=== PATIENT | female | born 1955 | race Caucasian/White ===

== ENCOUNTER 2017-03-31 10:24 | Inpatient (IN) | payer BC ==
[~2017-03-31] VITALS: Ht 157.5 cm; Wt 59.8 kg
[2017-03-31] VITALS (31 sets, daily range): BP systolic 110–139; BP diastolic 58–85; PULSE 73–94; RESP 11–20; Ht 157.5 cm; Wt 59.8 kg
[2017-03-31] MEDS ORDERED: GABA100C14 PO (11:42)
[2017-03-31] MEDS ORDERED: LOSA1TAB19 PO (11:43)
[2017-03-31] MEDS ORDERED: CHOL200078 PO (11:43)
[2017-03-31] MEDS ORDERED: CETI-240 PO (11:44)
--- NOTE | 2017-03-31 12:27 | HPN ---
Date/Time of Note Date/Time of Note DATE: 03/31/17 TIME: 12:27 Interval H&P Admission Note Pt. seen H&P reviewed: No system changes TINA MYLES MD Mar 31, 2017 12:27
[2017-03-31] MEDS ORDERED: HYDROmorphONE 0.5 MG/0.5 ML SYG IV PRN (12:30)
[2017-03-31] MEDS ORDERED: BISACODYL 10 MG SUPP PR PRN (12:30)
[2017-03-31] MEDS ORDERED: AL HYDROX/MG HYDROX/SIMETH 30 ML CUP PO PRN (12:30)
[2017-03-31] MEDS ORDERED: ACETAMINOPHEN 325 MG TAB PO PRN (12:30)
[2017-03-31] MEDS ORDERED: CEFAZOLIN 2 GM/50 ML (PMX) 50 ML IVPB ONE (12:30)
[2017-03-31] MEDS: CEFAZOLIN 1 GM/50 ML (PMX) 50 ML IVPB SCH ×2 (12:30→21:36)
[2017-03-31] MEDS ORDERED: NALOXONE (0.4 MG/ML) INJ IV PRN (12:30)
[2017-03-31] MEDS ORDERED: CEPASTAT LOZENGE MT PRN (12:30)
[2017-03-31] MEDS ORDERED: SURGIFOAM POWDER 1 GM KIT ONE (13:00)
[2017-03-31] MEDS ORDERED: POLYMYXIN/BACITRACIN 1L IRRIG ONE (13:00)
[2017-03-31] MEDS ORDERED: THROMBIN 5000 UNIT VIAL ONE (13:00)
[2017-03-31] MEDS ORDERED: GELATIN SIZE 100 SPONGE ONE (13:00)
[2017-03-31] MEDS ORDERED: BUPIVACAINE 0.5%/EPI (SDV) 30 ML INJ ONE (13:00)
[2017-03-31] MEDS ORDERED: FENTAnyl 50 MCG/ML VIAL ONE (13:20)
[2017-03-31] MEDS ORDERED: LABETALOL HCL 20MG INJ ONE (14:01)
[2017-03-31] MEDS ORDERED: hydrALAzine 20 MG INJ ONE (14:32)
[2017-03-31] MEDS ORDERED: HEPARIN 1000 UNITS/ML 10 ML INJ ONE (15:10)
[2017-03-31] MEDS ORDERED: PROPOFOL 20 ML ONE (16:38)
[2017-03-31] MEDS ORDERED: CEFAZOLIN 1 GM INJ ONE (16:38)
[2017-03-31] MEDS ORDERED: ROCURONIUM 50 MG INJ ONE (16:38)
[2017-03-31] MEDS ORDERED: SUGAMMADEX SODIUM 200 MG/2 ML VIAL IV ONE (16:38)
[2017-03-31] MEDS ORDERED: LIDOCAINE 2% (SDV) 5 ML INJ ONE (16:38)
[2017-03-31] MEDS ORDERED: SUCCINYLCHOLINE CHLORIDE 100 MG/5 ML SYG IV ONE (16:38)
[2017-03-31] MEDS ORDERED: METOCLOPRAMIDE 10 MG INJ IV PRN (17:00)
[2017-03-31] MEDS ORDERED: FENTAnyl 50 MCG/ML VIAL IV PRN ×2 (17:00)
[2017-03-31] MEDS ORDERED: ONDANSETRON 4 MG INJ IV PRN (17:00)
[2017-03-31] MEDS ORDERED: HYDROmorphONE (0.2 MG/ML) 10ML SYG IV PRN ×3 (17:00)
[2017-03-31] MEDS ORDERED: LABETALOL HCL 20MG INJ IV PRN (17:00)
[2017-03-31] MEDS ORDERED: DIPHENHYDRAMINE 50 MG INJ IV PRN (17:00)
[2017-03-31] MEDS ORDERED: hydrALAzine 20 MG INJ IV PRN (17:00)
[2017-03-31] MEDS ORDERED: MEPERIDINE 25 MG INJ IV PRN (17:00)
--- NOTE | 2017-03-31 17:00 | SIPON ---
Date/Time of Note Date/Time of Note DATE: 03/31/17 TIME: 16:59 Operative Report Preoperative Diagnosis L4-5 spondylolisthesis Postoperative Diagnosis L4-5 spondylolisthesis Operation/Procedure Performed L4-5 anterior and posterior fusion Surgeon see signature line executive assistant to president None Anesthesia: general Estimated blood loss: 50 - 100 ml's Transfusion Required none Specimen L4-5 disc Grafts/Implants Cages and screws Complications none TINA MYLES MD Mar 31, 2017 17:00
--- NOTE | 2017-03-31 17:32 | RADRPT ---
PROCEDURE: Intraoperative imaging of the lumbar spine with fluoroscopy. CLINICAL INDICATION: Back pain. Intraoperative. TECHNIQUE: 13 images of the lumbar spine were obtained in the operating room with an image intensi fier. No radiologist was in attendance. Fluoroscopy time is 185 seconds. COMPARISON: No prior study is available for comparison. FINDINGS: For the purposes of this report, the last apparent true disc level is considered to be L5-S1. Based on this, images demonstrate fusion at L4-5 with pedicle screws, connecting rods, and an interverteb ral cage. IMPRESSION: 1. Intraoperative imaging of the lumbar spine. RPTAT: QQ .Nelson Barroso MD, MD Date Time Electronically viewed and signed by .Nelson Barroso MD, MD on 03/31/2017 17:32 .R/
--- NOTE | 2017-03-31 17:33 | RADRPT ---
PROCEDURE: Intraoperative imaging of the lumbar spine with fluoroscopy. CLINICAL INDICATION: Back pain. Intraoperative. TECHNIQUE: 2 images of the lumbar spine were obtained in the operating room with an image intensif ier. No radiologist was in attendance. Fluoroscopy time is 24 seconds. COMPARISON: No prior study is available for comparison. FINDINGS: For the purposes of this report, the last apparent true disc level is considered to be L5-S1. Based on this, the images demonstrate an intervertebral cage at the L4-5 level. IMPRESSION: 1. Intraoperative imaging of the lumbar spine. RPTAT: QQ .Nelson Barroso MD, MD Date Time Electronically viewed and signed by .Nelson Barroso MD, MD on 03/31/2017 17:33 .R/
[2017-03-31] MEDS: HYDROmorphONE 0.2 MG/ML PCA IV SCH ×2 (17:59→18:00)
[2017-03-31 18:14] LABS: ADD UMIC NO; UR ASCORBIC ACID NEGATIVE (NEGATIVE); UR BILIRUBIN (Dip) NEGATIVE (NEGATIVE); UR BLOOD (Dip) NEGATIVE (NEGATIVE); UR CLARITY CLEAR (CLEAR); UR COLOR YELLOW (YELLOW); UR GLUCOSE (Dip) NEGATIVE (NEGATIVE); UR KETONES (Dip) NEGATIVE (NEGATIVE); UR LEUKOCYTE ESTERASE (Dip) NEGATIVE Leu/ul (NEGATIVE); UR NITRITE (Dip) NEGATIVE (NEGATIVE); UR SPECIFIC GRAVITY (Dip) 1.014 (1.003-1.030); UR TOTAL PROTEIN (Dip) NEGATIVE (NEGATIVE); UR UROBILINOGEN (Dip) NEGATIVE (NEGATIVE)
[2017-03-31] MEDS: LOSARTAN 50 MG TAB PO SCH (18:30)
--- NOTE | 2017-03-31 18:39 | OPR ---
DATE OF OPERATION: 03/31/2017 PREOPERATIVE DIAGNOSIS: L4-L5 degenerative spondylolisthesis with radiculopathy and stenosis. POSTOPERATIVE DIAGNOSIS: L4-L5 degenerative spondylolisthesis with radiculopathy and stenosis. PROCEDURES: 1. Anterior lumbar interbody fusion at L4-L5. 2. Placement of intervertebral biomechanical device at L4-L5. 3. Pedicle screw placement at L4-L5. 4. Posterolateral fusion at L4-L5. 5. Bone marrow aspiration, left L4 vertebral body. 6. Use of allograft. 7. Use of C-arm fluoroscopy with interpretation without radiologist. 8. Intraoperative neuromonitoring (3.5 hours). PRIMARY SURGEON: Pedro Noble MD WINE BOTTLE INSPECTOR: None. IMPLANTS: 1. [place] 12 x 10 x 45 mm cage. 2. [place] 6.5 x 40 mm pedicle screws at L4 and L5 bilaterally. 3. Fibergraft matrix. FINDINGS: Neuromonitoring at the start of the case revealed L4 amplitude down 10% bilaterally, left L5 amplitude down 60%, right L5 amplitude down 40%, left S1 amplitude down 50%. At the end of the case, nerve signals returned to normal. The patient had a degenerative spondylolisthesis at L4-L5. ESTIMATED BLOOD LOSS: 100 mL. DRAINS: None. SPECIMENS: L4-L5 disk. COMPLICATIONS OF PROCEDURE: None. ANESTHESIOLOGIST: Dr. Nguyen. TYPE OF ANESTHESIA: General. INDICATION FOR PROCEDURE: This is a 61-year-old female with neurogenic claudication, stenosis and r adiculopathy due to L4-L5 degenerative anterolisthesis. She failed nonoperative measures. Therefor e, I recommended proceeding with the above-mentioned surgery. Preoperatively, we discussed the risk s, benefits and alternatives. She understood and wished to proceed. DESCRIPTION OF PROCEDURE IN DETAIL: The patient was identified in the preoperative holding area, [facility], taken to the operating room where she was successfully placed under general an esthesia. Neuromonitoring leads were placed. Sequential compressive devices were applied. Monsivais c atheter was introduced. Arterial line was placed. Neuromonitoring was utilized during the procedur e for 3.5 hours to include SSEP, MEP and EMG. This was performed by [employer]. Start time w as at 1:30. Closure time was 5:00 p.m. The patient was initially placed in a left lateral decubitu s position. The patient was secured to the table with tape and the bed was flexed. The lateral abd omen was then prepped and draped in usual sterile fashion. Incision was made directly laterally ove r the L4-L5 level. I entered the retroperitoneal space with finger dissection to enter the anterior spine. I then docked a dilator using neuromonitoring along the way and placed a guidewire, followe d by placement of larger cannulas. I then placed a retractor. I cleaned the psoas off of the disk space. I next visualized the annulus. I probed the area to make sure that there were no neural olive ments in the field. I then performed a radical diskectomy using curettes, Kerrison punches and pitu itary rongeurs. I then placed various trials. The 8 x 10 mm trial was too small, as was the 10 mm, and, therefore, I elected to use a 12 x 10 mm lordotic trial in order to achieve lordosis. This we nt in quite easily without having to overly distract despite this disk height being now larger than the adjacent disks. After I placed the various trials, I chose the appropriate graft height. I the n took the PEEK cage within which I had placed the allograft and I impacted the intervertebral biome chanical device into the L4-L5 level to complete the anterior lumbar interbody fusion at L4-L5. I i rrigated the wound and achieved hemostasis with bipolar cautery and Surgifoam. Retractors were argenis harpreet, and I took final AP and lateral images. I was happy with the placement of hardware and the ali gnment of the spine. I removed the retractors and closed this wound in layers, closing deep fascia with #1 Vicryl stitch. I closed the subcutaneous tissue with 2-0 Vicryl stitch. Dermabond and ster ile dressing was then applied. The patient was then placed on the operating table in the prone posi tion over a Judson frame. All bony prominences were well padded. The back was then reprepped and d raped in the usual sterile fashion. Using the C-arm fluoroscope, I identified the incision site. I anesthetized the skin with Marcaine and epinephrine. I made bilateral Leigha incisions at L4-L5. Skin was incised. The fascia was incised. I then passed Jamshidi needles into the L4 and L5 pedicl es bilaterally under C-arm guidance. I then performed a bone marrow aspiration from the left L4 roman tebral body. I then placed the appropriate-sized pedicle screws at L4 and L5, confirming placement using the C-arm fluoroscope. I stimulated each of the screws, and there was no evidence of cortical breach. I then irrigated the wound. I then placed the appropriate-sized rods and compressed acros s the pedicle screws and placed the set screws with tightening per manufacture's specifications. On ce the hardware was in place, I took final AP and lateral images. I was happy with the alignment of the spine and the hardware. I prepared the posterolateral gutter and placed the allograft here for a posterolateral fusion at L4-L5. I then closed the deep fascia with a #1 Vicryl stitch. I closed the subcutaneous tissue with 2-0 Vicryl stitch. Dermabond was then applied. The patient was then awakened from anesthesia and taken to the recovery room in stable condition. Lap, sponge and instru ment counts were correct x2. There were no apparent complications during the procedure. The patient will be admitted to the [facility] for routine postoperative care to include pain c ontrol, neurovascular checks, antibiotics and physical therapy. At the end of the case, all nerve s ignals were normal. Dictated By: PEDRO NOBLE MD BB/ARTURO Conf#: [id number] DID#: [id number] CC: PEDRO NOBLE MD;*EndCC*
[2017-03-31] MEDS: D5W-0.45 NACL + KCL 20 MEQ 1,000 ML IV SCH ×2 (20:04→22:27)
[2017-03-31] MEDS: DOCUSATE SODIUM 100 MG CAP PO SCH (21:35)
[2017-03-31] MEDS: ONDANSETRON 4 MG INJ IV PRN (22:35)
--- NOTE | 2017-04-01 00:31 | CONS ---
DATE OF ADMISSION: 03/31/2017 DATE OF CONSULTATION: POSTOP MEDICAL CONSULTATIVE NOTE Dear Dr. Noble, Thank you very much for allowing me to evaluate this 61-year-old female who just underwent lumbar ba ck surgery and has known hypertension. HISTORICAL EVENTS: As you well know, this patient has had continued pain. Onset was in 2004 involv ing her back and radiating into her lower extremities, accompanied by heaviness of her legs. Epidur als have not provided any relief. Because of progressive increase, she elected to proceed with surg anna. In recovery, she is comfortable without cough, wheezing, shortness of breath, nausea, vomiting , abdominal or chest pain. PAST MEDICAL HISTORY: Includes hypertension, asthma and depression. MEDICATIONS: Include: 1. Losartan/hydrochlorothiazide 50/12.5 per day. 2. Gabapentin 100 mg b.i.d. 3. Tylenol extra strength. 4. Vitamin D3 2000 units per day. 5. Xopenex 1 inhalation t.i.d. p.r.n. SOCIAL HISTORY: Prior smoker. 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 FAMILY HISTORY: To be obtained later. PHYSICAL EXAMINATION: GENERAL: [place] female in no acute distress. VITAL SIGNS: BP 122/80, pulse 70, respirations of 20. She was afebrile. EYES: Extraocular muscles were full. NOSE, MOUTH AND THROAT: Normal. NECK: Supple. There was no jugular venous distention, thyroid enlargement or adenopathy. LUNGS: Clear. HEART: Rhythm was regular. No murmur. No third or fourth sound. ABDOMEN: Nontender. Liver and spleen were not palpable. No masses or tenderness were noted. EXTREMITIES: No edema. Calves nontender. NEUROLOGIC: No lateralizing motor weakness. IMPRESSION: 1. Stable postoperative lumbar back surgery. 2. History of hypertension. Blood pressure will be monitored throughout and Losartan resumed witho ut needed diuretic. 3. Asthma. History of the same. Will observe and provide inhaled bronchodilators if needed. 4. Will follow daily for signs and symptoms of thromboembolic disease. Dictated By: PATRICIA LAZO/ARTURO Conf#: [id number] DID#: [id number] CC: TINA NOBLE MD;*EndCC*
[2017-04-01 02:18] VITALS: BP 120/75; RESP 19
[2017-04-01] MEDS: HYDROmorphONE 0.2 MG/ML PCA IV SCH ×2 (03:40→13:55)
[2017-04-01] MEDS: CEFAZOLIN 1 GM/50 ML (PMX) 50 ML IVPB SCH (05:00)
[2017-04-01 05:17] LABS: BASOPHILS % 0.4 % (0.0-2.0); EOSINOPHILS # 0.1 10^3/ul (0.0-0.5); EOSINOPHILS % 0.7 % (0.0-7.0); LYMPHOCYTES # 1.3 10^3/ul (0.8-2.9); LYMPHOCYTES % 15.3 % (15.0-51.0); MEAN CORPUSCULAR HEMOGLOBIN 34.4 pg (29.0-33.0); MEAN CORPUSCULAR HGB CONC 33.3 g/dl (32.0-37.0); MEAN CORPUSCULAR VOLUME 103.2 fl (82.0-101.0); MEAN PLATELET VOLUME 9.6 fl (7.4-10.4); MONOCYTE # 0.9 10^3/ul (0.3-0.9); MONOCYTES % 10.6 % (0.0-11.0); NEUTROPHIL # 6.2 10^3/ul (1.6-7.5); NEUTROPHILS % 72.6 % (39.0-77.0); PLATELET COUNT 247 10^3/UL (140-415); RED BLOOD COUNT 3.49 10^6/ul (4.20-5.40); RED CELL DISTRIBUTION WIDTH 11.1 % (11.5-14.5); WHITE BLOOD COUNT 8.5 10^3/ul (4.8-10.8)
[2017-04-01 05:50] LABS: CALCIUM 8.5 mg/dl (8.4-10.2); CREATININE 0.7 mg/dl (0.44-1.00); MAGNESIUM 1.7 mg/dl (1.7-2.5); POTASSIUM 3.9 mmol/L (3.5-5.1)
[2017-04-01] MEDS ORDERED: PANTOPRAZOLE 40 MG INJ IV SCH (06:00)
[2017-04-01] MEDS: D5W-0.45 NACL + KCL 20 MEQ 1,000 ML IV SCH ×2 (06:49→16:13)
[2017-04-01 07:34] VITALS: BP 100/58; RESP 18
--- NOTE | 2017-04-01 08:31 | PN ---
Date/Time of Note Date/Time of Note DATE: 04/01/17 TIME: 08:30 Assessment/Plan Lines/Catheters IV Catheter Type (from Nrsg): Saline Lock Monsivais in Place (from Nrsg): Yes Assessment/Plan Assessment/Plan Postop day 1 status post anterior and posterior lumbar fusion. Patient is doing well. Continue with current protocol and pain control. Subjective 24 Hr Interval Summary doing well. Complains of low back pain Exam/Review of Systems Vital Signs Vitals Vital Signs Date Time Temp Pulse Resp B/P Pulse Ox O2 Delivery O2 Flow Rate FiO2 04/01/17 07:34 98.3 85 18 100/58 99 03/31/17 23:30 Room Air Intake and Output 03/31/17 03/31/17 04/01/17 14:59 22:59 06:59 Intake Total 1000 ml 50 ml 1450 ml Output Total 450 ml 700 ml Balance 1000 ml -400 ml 750 ml Exam Free Text/Dictation Distally neurovascularly intact Results Result Diagram: 04/01/17 0445 04/01/17 0445 TINA MYLES MD Apr 01, 2017 08:31
--- NOTE | 2017-04-01 08:31 | CONS ---
Date/Time of Note Date/Time of Note DATE: 04/01/17 TIME: 08:29 Assessment/Plan Assessment/Plan Additional Assessment/Plan 1. Doing well post op lumbar laminectomy. 2. Hx HBP, controlled. 3. Labs rev Consultation Date/Type/Reason Admit Date/Time Mar 31, 2017 at 10:57 Initial Consult Date Detailed Summary Respiratory: No cough, No shortness of breath Cardiovascular: No chest pain Gastrointestinal: no complaints Genitourinary: other (ibarra is in place) Musculoskeletal: back pain (moderate) Neurologic: No focal-weakness, No headache Exam/Review of Systems Vital Signs Vitals Vital Signs Date Time Temp Pulse Resp B/P Pulse Ox O2 Delivery O2 Flow Rate FiO2 04/01/17 07:34 98.3 85 18 100/58 99 03/31/17 23:30 Room Air Intake and Output 03/31/17 03/31/17 04/01/17 15:00 23:00 07:00 Intake Total 1000 ml 50 ml 1450 ml Output Total 450 ml 700 ml Balance 1000 ml -400 ml 750 ml Exam Neck: No jvd Respiratory: clear to auscultation Cardiovascular: regular rate and rhythm Gastrointestinal: soft Extremities: No edema (and no calf tend bilat) Results Result Diagram: 04/01/17 0445 04/01/17 0445 Results 24 hrs Laboratory Tests Test 03/31/17 17:50 04/01/17 04:45 Urine Color YELLOW Urine Clarity CLEAR Urine pH 6.0 Urine Specific [place] 1.014 Urine Ketones NEGATIVE Urine Nitrite NEGATIVE Urine Bilirubin NEGATIVE Urine Urobilinogen NEGATIVE Urine Leukocyte Esterase NEGATIVE Urine Hemoglobin NEGATIVE Urine Glucose NEGATIVE Urine Total Protein NEGATIVE White Blood Count 8.5 Red Blood Count 3.49 L Hemoglobin 12.0 Hematocrit 36.0 L Mean Corpuscular Volume 103.2 H Mean Corpuscular Hemoglobin 34.4 H Mean Corpuscular Hemoglobin Concent 33.3 Red Cell Distribution Width 11.1 L Platelet Count 247 Mean Platelet Volume 9.6 Neutrophils % 72.6 Lymphocytes % 15.3 Monocytes % 10.6 Eosinophils % 0.7 Basophils % 0.4 Nucleated Red Blood Cells % 0.0 Neutrophils # 6.2 Lymphocytes # 1.3 Monocytes # 0.9 Eosinophils # 0.1 Basophils # 0.0 Nucleated Red Blood Cells # 0.0 Sodium Level 139 Potassium Level 3.9 Chloride Level 102 Carbon Dioxide Level 29 Anion Gap 12 Blood Urea Nitrogen 13 Creatinine 0.70 Glucose Level 127 Calcium Level 8.5 Magnesium Level 1.7 Medications Medications Current Medications Potassium Chloride/Dextrose/ Sod Cl (D5-1/2ns + KCl 20 Meq) 1,000 ml @ 100 mls/ hr Q10H IV Last administered on 04/01/17 06:49; Admin Dose 100 MLS/HR; Start 03/31/17 at 12:27 Acetaminophen/ Hydrocodone Bitart ([place] (10/325)) 1 tab Q4H PRN PO PAIN LEVEL 1-5; Start 03/31/17 at 12:30 Acetaminophen/ Hydrocodone Bitart ([place] (10/325)) 2 tab Q4H PRN PO PAIN LEVEL 6-10; Start 03/31/17 at 12:30 Hydromorphone HCl (Dilaudid) 0.2 mg Q1H PRN IV BREAKTHROUGH PAIN; Start at 12:30 Ondansetron HCl (Zofran Inj) 4 mg Q6H PRN IV NAUSEA AND/OR VOMITING Last administered on 03/31/17 22:35; Admin Dose 4 MG; Start 03/31/17 at 12:30 Bisacodyl (Dulcolax Supp) 10 mg DAILY PRN [place] CONSTIPATION; Start 03/31/17 at 12:30 Docusate Sodium (Colace) 100 mg BID PO Last administered on 03/31/17 21:35; Admin Dose 100 MG; Start 03/31/17 at 21:00 Pantoprazole (Protonix Iv) 40 mg DAILY@06 IV Last administered on 04/01/17 05 :41; Admin Dose 40 MG; Start 04/01/17 at 06:00 Al Hydrox/Mg Hydrox/Simethicone (Mag-Al Plus) 15 ml Q6H PRN PO CONSTIPATION/ DYSPEPSIA; Start 03/31/17 at 12:30 Acetaminophen (Tylenol Tab) 650 mg Q4H PRN PO JASON OR TEMP GREATER THAN 101.3F; Start 03/31/17 at 12:30 Cyclobenzaprine HCl (Flexeril) 10 mg TID PRN PO MUSCLE SPASMS; Start 03/31/17 at 12:30 Phenol (Cepastat Lozenge) 1 lozenge PRN PRN [place] SORE THROAT; Start 03/31/17 at 12:30 Diphenhydramine HCl (Benadryl) 25 mg Q6H PRN PO ITCHING; Start 03/31/17 at 12: 30 Diphenhydramine HCl (Benadryl) 25 mg Q6H PRN IV ITCHING; Start 03/31/17 at 12: 30 Naloxone HCl (Narcan) 0.2 mg Q2M PRN IV RR 8 BREATHS/MIN OR LESS; Start at 12:30 Hydromorphone HCl (Dilaudid MEDICAL CENTER MANAGER) MEDICAL CENTER MANAGER to be started in PACU Q4PCA IV Last administered on 04/01/17t 03:40; Admin Dose 6 MG; Start 03/31/17 at 12:30 Miscellaneous Information 1. Hold MEDICAL CENTER MANAGER at 1,000... MEDICAL CENTER MANAGER IV ; Start 03/31/17 at 12 :30 Loratadine (Claritin) 10 mg DAILY PO ; Start 04/01/17 at 09:00 Losartan Potassium (Cozaar) 50 mg DAILY PO ; Start 03/31/17 at 18:30 PATRICIA MONTES MD Apr 01, 2017 08:31
[2017-04-01] MEDS: LOSARTAN 50 MG TAB PO SCH (09:00)
[2017-04-01] MEDS: ONDANSETRON 4 MG INJ IV PRN (09:05)
[2017-04-01] MEDS: CYCLOBENZAPRINE 10 MG TAB PO PRN ×2 (09:05→20:50)
[2017-04-01] MEDS: LORATADINE 10 MG TAB PO SCH (09:06)
[2017-04-01] MEDS: DOCUSATE SODIUM 100 MG CAP PO SCH ×2 (09:06→20:50)
[2017-04-01] MEDS: DIPHENHYDRAMINE 25 MG CAP PO PRN (12:16)
[2017-04-01 14:35] VITALS: BP 121/67; RESP 18
[2017-04-01 20:09] VITALS: BP 155/77; RESP 20
[2017-04-01] MEDS: DIPHENHYDRAMINE 50 MG INJ IV PRN (20:50)
[2017-04-02 00:25] VITALS: BP 135/66; RESP 18
[2017-04-02] MEDS: D5W-0.45 NACL + KCL 20 MEQ 1,000 ML IV SCH (02:41)
[2017-04-02 05:17] LABS: BASOPHILS % 0.3 % (0.0-2.0); EOSINOPHILS # 0.2 10^3/ul (0.0-0.5); EOSINOPHILS % 1.7 % (0.0-7.0); HEMATOCRIT 33.4 % (37.0-47.0); HEMOGLOBIN 11.2 g/dl (12.0-16.0); LYMPHOCYTES # 1.4 10^3/ul (0.8-2.9); LYMPHOCYTES % 14.3 % (15.0-51.0); MEAN CORPUSCULAR HEMOGLOBIN 34.7 pg (29.0-33.0); MEAN CORPUSCULAR HGB CONC 33.5 g/dl (32.0-37.0); MEAN CORPUSCULAR VOLUME 103.4 fl (82.0-101.0); MEAN PLATELET VOLUME 9.9 fl (7.4-10.4); MONOCYTE # 1.3 10^3/ul (0.3-0.9); MONOCYTES % 13.8 % (0.0-11.0); NEUTROPHIL # 6.7 10^3/ul (1.6-7.5); NEUTROPHILS % 69.5 % (39.0-77.0); PLATELET COUNT 211 10^3/UL (140-415); RED BLOOD COUNT 3.23 10^6/ul (4.20-5.40); WHITE BLOOD COUNT 9.6 10^3/ul (4.8-10.8)
[2017-04-02 05:37] LABS: CALCIUM 8.5 mg/dl (8.4-10.2); CREATININE 0.72 mg/dl (0.44-1.00); MAGNESIUM 1.7 mg/dl (1.7-2.5); POTASSIUM 4.3 mmol/L (3.5-5.1)
[2017-04-02] MEDS: PANTOPRAZOLE (EC) 40 MG TAB PO SCH (05:42)
[2017-04-02] MEDS: HYDROmorphONE 0.2 MG/ML PCA IV SCH (05:45)
[2017-04-02] MEDS: DIPHENHYDRAMINE 50 MG INJ IV PRN (05:48)
--- NOTE | 2017-04-02 07:45 | CONS ---
Date/Time of Note Date/Time of Note DATE: 04/02/17 TIME: 07:43 Assessment/Plan Assessment/Plan Additional Assessment/Plan 1. Doing well post op, left hip pain prob muscular, await ortho follow up 2. HBP, well controlled 3. Labs rev Consultation Date/Type/Reason Admit Date/Time Mar 31, 2017 at 10:57 Detailed Summary ENT: sore throat Respiratory: No cough, No shortness of breath Cardiovascular: no complaints Gastrointestinal: no complaints Genitourinary: other (ibarra was just removed) Musculoskeletal: no complaints (moderate with mild discomfort left hip without radic leg pain) Exam/Review of Systems Vital Signs Vitals Vital Signs Date Time Temp Pulse Resp B/P Pulse Ox O2 Delivery O2 Flow Rate FiO2 04/02/17 05:41 18 04/02/17 00:25 98.6 87 135/66 95 03/31/17 23:30 Room Air Intake and Output 04/01/17 04/01/17 04/02/17 15:00 23:00 07:00 Intake Total 1720 ml 1510 ml Output Total 550 ml 900 ml Balance 1170 ml 610 ml Exam Neck: No jvd Respiratory: clear to auscultation Cardiovascular: regular rate and rhythm Gastrointestinal: soft Extremities: No edema (and no calf tend) Results Result Diagram: 04/02/17 0444 04/02/17 0444 Results 24 hrs Laboratory Tests Test 04/02/17 04:44 White Blood Count 9.6 Red Blood Count 3.23 L Hemoglobin 11.2 L Hematocrit 33.4 L Mean Corpuscular Volume 103.4 H Mean Corpuscular Hemoglobin 34.7 H Mean Corpuscular Hemoglobin Concent 33.5 Red Cell Distribution Width 11.0 L Platelet Count 211 Mean Platelet Volume 9.9 Neutrophils % 69.5 Lymphocytes % 14.3 L Monocytes % 13.8 H Eosinophils % 1.7 Basophils % 0.3 Nucleated Red Blood Cells % 0.0 Neutrophils # 6.7 Lymphocytes # 1.4 Monocytes # 1.3 H Eosinophils # 0.2 Basophils # 0.0 Nucleated Red Blood Cells # 0.0 Sodium Level 133 L Potassium Level 4.3 Chloride Level 100 Carbon Dioxide Level 28 Anion Gap 9 Blood Urea Nitrogen 7 Creatinine 0.72 Glucose Level 117 Calcium Level 8.5 Magnesium Level 1.7 Medications Medications Current Medications Potassium Chloride/Dextrose/ Sod Cl (D5-1/2ns + KCl 20 Meq) 1,000 ml @ 100 mls/ hr Q10H IV Last administered on 04/02/17 02:41; Admin Dose 100 MLS/HR; Start 03/31/17 at 12:27 Acetaminophen/ Hydrocodone Bitart ([place] (10/325)) 1 tab Q4H PRN PO PAIN LEVEL 1-5; Start 03/31/17 at 12:30 Acetaminophen/ Hydrocodone Bitart ([place] (10/325)) 2 tab Q4H PRN PO PAIN LEVEL 6-10; Start 03/31/17 at 12:30 Hydromorphone HCl (Dilaudid) 0.2 mg Q1H PRN IV BREAKTHROUGH PAIN; Start at 12:30 Ondansetron HCl (Zofran Inj) 4 mg Q6H PRN IV NAUSEA AND/OR VOMITING Last administered on 04/01/17 09:05; Admin Dose 4 MG; Start 03/31/17 at 12:30 Bisacodyl (Dulcolax Supp) 10 mg DAILY PRN [place] CONSTIPATION; Start 03/31/17 at 12:30 Docusate Sodium (Colace) 100 mg BID PO Last administered on 04/01/17 20:50; Admin Dose 100 MG; Start 03/31/17 at 21:00 Al Hydrox/Mg Hydrox/Simethicone (Mag-Al Plus) 15 ml Q6H PRN PO CONSTIPATION/ DYSPEPSIA; Start 03/31/17 at 12:30 Acetaminophen (Tylenol Tab) 650 mg Q4H PRN PO JASON OR TEMP GREATER THAN 101.3F; Start 03/31/17 at 12:30 Cyclobenzaprine HCl (Flexeril) 10 mg TID PRN PO MUSCLE SPASMS Last administered on 04/01/17 20:50; Admin Dose 10 MG; Start 03/31/17 at 12:30 Phenol (Cepastat Lozenge) 1 lozenge PRN PRN [place] SORE THROAT Last administered on 04/01/17 20:54; Admin Dose 1 LOZENGE; Start 03/31/17 at 12:30 Diphenhydramine HCl (Benadryl) 25 mg Q6H PRN PO ITCHING Last administered on 12:16; Admin Dose 25 MG; Start 03/31/17 at 12:30 Diphenhydramine HCl (Benadryl) 25 mg Q6H PRN IV ITCHING Last administered on 05:48; Admin Dose 25 MG; Start 03/31/17 at 12:30 Naloxone HCl (Narcan) 0.2 mg Q2M PRN IV RR 8 BREATHS/MIN OR LESS; Start at 12:30 Hydromorphone HCl (Dilaudid STAFF REGISTERED NURSE) STAFF REGISTERED NURSE to be started in PACU Q4PCA IV Last administered on 04/02/17 05:45; Admin Dose 6 MG; Start 03/31/17 at 12:30 Miscellaneous Information 1. Hold STAFF REGISTERED NURSE at 1,000... STAFF REGISTERED NURSE IV ; Start 03/31/17 at 12 :30 Loratadine (Claritin) 10 mg DAILY PO Last administered on 04/01/17 09:06; Admin Dose 10 MG; Start 04/01/17 at 09:00 Losartan Potassium (Cozaar) 50 mg DAILY PO ; Start 03/31/17 at 18:30 Pantoprazole (Protonix Tab) 40 mg DAILY@06 PO Last administered on 04/02/17 05:42; Admin Dose 40 MG; Start 04/02/17 at 06:00 PATRICIA MONTES MD Apr 02, 2017 07:45
[2017-04-02 07:53] VITALS: BP 125/67; RESP 18
--- NOTE | 2017-04-02 08:30 | PN ---
Date/Time of Note Date/Time of Note DATE: 04/02/17 TIME: 08:30 Assessment/Plan Lines/Catheters IV Catheter Type (from Nrsg): Peripheral IV Ibarra in Place (from Nrsg): Yes Assessment/Plan Assessment/Plan POD #2 s/p fusion doing well d/c TUBE WASHER and ibarra antic d/c home tomorrow hip pain secondary to stretch Subjective 24 Hr Interval Summary doing well, c/o hip pain Exam/Review of Systems Vital Signs Vitals Vital Signs Date Time Temp Pulse Resp B/P Pulse Ox O2 Delivery O2 Flow Rate FiO2 04/02/17 07:53 98.7 86 18 125/67 95 03/31/17 23:30 Room Air Intake and Output 04/01/17 04/01/17 04/02/17 15:00 23:00 07:00 Intake Total 1720 ml 1510 ml Output Total 550 ml 900 ml Balance 1170 ml 610 ml Exam Free Text/Dictation nvi Results Result Diagram: 04/02/17 0444 04/02/17 0444 TINA MYLES MD Apr 02, 2017 08:30
[2017-04-02] MEDS: DOCUSATE SODIUM 100 MG CAP PO SCH ×2 (08:55→20:49)
[2017-04-02] MEDS: LOSARTAN 50 MG TAB PO SCH (08:55)
[2017-04-02] MEDS: LORATADINE 10 MG TAB PO SCH (08:55)
[2017-04-02] MEDS: CYCLOBENZAPRINE 10 MG TAB PO PRN ×2 (10:12→13:52)
[2017-04-02] MEDS: HYDROCODONE/APAP (10/325) TAB PO PRN ×4 (10:12→23:09)
[2017-04-02 13:00] VITALS: BP 118/72; PULSE 88; RESP 20
[2017-04-02] MEDS: SOD CHLORIDE 0.9% 1,000 ML IV SCH (13:48)
[2017-04-02 19:35] VITALS: BP 126/69; RESP 18
[2017-04-03 02:19] VITALS: BP 100/61; RESP 18
[2017-04-03] MEDS: SOD CHLORIDE 0.9% 1,000 ML IV SCH (02:20)
[2017-04-03] MEDS: PANTOPRAZOLE (EC) 40 MG TAB PO SCH (05:01)
[2017-04-03] MEDS: CYCLOBENZAPRINE 10 MG TAB PO PRN ×2 (05:01→10:22)
[2017-04-03] MEDS: HYDROCODONE/APAP (10/325) TAB PO PRN ×2 (05:02→10:21)
[2017-04-03 05:38] LABS: BASOPHIL # 0.1 10^3/ul (0.0-0.1); BASOPHILS % 0.6 % (0.0-2.0); EOSINOPHILS # 0.3 10^3/ul (0.0-0.5); EOSINOPHILS % 3.2 % (0.0-7.0); HEMATOCRIT 31.8 % (37.0-47.0); HEMOGLOBIN 10.5 g/dl (12.0-16.0); LYMPHOCYTES # 1.6 10^3/ul (0.8-2.9); MEAN CORPUSCULAR HEMOGLOBIN 34.2 pg (29.0-33.0); MEAN CORPUSCULAR VOLUME 103.6 fl (82.0-101.0); MEAN PLATELET VOLUME 10.2 fl (7.4-10.4); MONOCYTE # 1.1 10^3/ul (0.3-0.9); MONOCYTES % 13.8 % (0.0-11.0); NEUTROPHIL # 4.7 10^3/ul (1.6-7.5); PLATELET COUNT 203 10^3/UL (140-415); RED BLOOD COUNT 3.07 10^6/ul (4.20-5.40); RED CELL DISTRIBUTION WIDTH 11.3 % (11.5-14.5); WHITE BLOOD COUNT 7.7 10^3/ul (4.8-10.8)
[2017-04-03 06:14] LABS: CALCIUM 9.1 mg/dl (8.4-10.2); CREATININE 0.74 mg/dl (0.44-1.00); MAGNESIUM 1.9 mg/dl (1.7-2.5)
[2017-04-03 07:27] VITALS: BP 135/77; RESP 18
--- NOTE | 2017-04-03 08:15 | CONS ---
Date/Time of Note Date/Time of Note DATE: 04/03/17 TIME: 08:14 Assessment/Plan Assessment/Plan Additional Assessment/Plan 1. Doing very well post op lumbar back surgery 2. HBP, controlled 3. Labs rev 4. Can be dc if ok with ortho and PT Consultation Date/Type/Reason Admit Date/Time Mar 31, 2017 at 10:57 Detailed Summary Respiratory: No cough, No shortness of breath Cardiovascular: No chest pain, No lightheadedness, No orthopenea Gastrointestinal: no complaints, other (mild bloaing), No nausea, No vomiting Genitourinary: no complaints Musculoskeletal: back pain (moderate and less right hip pain today) Exam/Review of Systems Vital Signs Vitals Vital Signs Date Time Temp Pulse Resp B/P Pulse Ox O2 Delivery O2 Flow Rate FiO2 04/03/17 07:27 98.2 86 18 135/77 96 04/02/17 13:00 Room Air Intake and Output 04/02/17 04/02/17 04/03/17 15:00 23:00 07:00 Intake Total 770 ml 1575 ml 690 ml Balance 770 ml 1575 ml 690 ml Exam Neck: No jvd Respiratory: clear to auscultation Cardiovascular: regular rate and rhythm Gastrointestinal: soft Extremities: No edema (and no calf tend) Results Result Diagram: 04/03/1744304/03/17 0444 Results 24 hrs Laboratory Tests Test 04/03/17 04:44 White Blood Count 7.7 Red Blood Count 3.07 L Hemoglobin 10.5 L Hematocrit 31.8 L Mean Corpuscular Volume 103.6 H Mean Corpuscular Hemoglobin 34.2 H Mean Corpuscular Hemoglobin Concent 33.0 Red Cell Distribution Width 11.3 L Platelet Count 203 Mean Platelet Volume 10.2 Neutrophils % 61.0 Lymphocytes % 21.0 Monocytes % 13.8 H Eosinophils % 3.2 Basophils % 0.6 Nucleated Red Blood Cells % 0.0 Neutrophils # 4.7 Lymphocytes # 1.6 Monocytes # 1.1 H Eosinophils # 0.3 Basophils # 0.1 Nucleated Red Blood Cells # 0.0 Sodium Level 138 Potassium Level 4.0 Chloride Level 104 Carbon Dioxide Level 31 Anion Gap 7 L Blood Urea Nitrogen 9 Creatinine 0.74 Glucose Level 96 Calcium Level 9.1 Magnesium Level 1.9 Medications Medications Current Medications Acetaminophen/ Hydrocodone Bitart ([place] (10/325)) 1 tab Q4H PRN PO PAIN LEVEL 1-5 Last administered on 04/02/17 18:05; Admin Dose 1 TAB; Start 03/31/17 at 12:30 Acetaminophen/ Hydrocodone Bitart ([place] ()) 2 tab Q4H PRN PO PAIN LEVEL 6-10 Last administered on 04/03/17 05:02; Admin Dose 2 TAB; Start 03/31/17 at 12:30 Hydromorphone HCl (Dilaudid) 0.2 mg Q1H PRN IV BREAKTHROUGH PAIN; Start at 12:30 Ondansetron HCl (Zofran Inj) 4 mg Q6H PRN IV NAUSEA AND/OR VOMITING Last administered on 04/01/17 09:05; Admin Dose 4 MG; Start 03/31/17 at 12:30 Bisacodyl (Dulcolax Supp) 10 mg DAILY PRN MD CONSTIPATION; Start 03/31/17 at 12:30 Docusate Sodium (Colace) 100 mg BID PO Last administered on 04/02/17 20:49; Admin Dose 100 MG; Start 03/31/17 at 21:00 Al Hydrox/Mg Hydrox/Simethicone (Mag-Al Plus) 15 ml Q6H PRN PO CONSTIPATION/ DYSPEPSIA; Start 03/31/17 at 12:30 Acetaminophen (Tylenol Tab) 650 mg Q4H PRN PO JASON OR TEMP GREATER THAN 101.3F; Start 03/31/17 at 12:30 Cyclobenzaprine HCl (Flexeril) 10 mg TID PRN PO MUSCLE SPASMS Last administered on 04/03/17 05:01; Admin Dose 10 MG; Start 03/31/17 at 12:30 Phenol (Cepastat Lozenge) 1 lozenge PRN PRN MT SORE THROAT Last administered on 04/01/17 20:54; Admin Dose 1 LOZENGE; Start 03/31/17 at 12:30 Diphenhydramine HCl (Benadryl) 25 mg Q6H PRN PO ITCHING Last administered on 12:16; Admin Dose 25 MG; Start 03/31/17 at 12:30 Diphenhydramine HCl (Benadryl) 25 mg Q6H PRN IV ITCHING Last administered on 05:48; Admin Dose 25 MG; Start 03/31/17 at 12:30 Naloxone HCl (Narcan) 0.2 mg Q2M PRN IV RR 8 BREATHS/MIN OR LESS; Start at 12:30 Hydromorphone HCl (Dilaudid DATA PROCESSING SUPERVISOR) DATA PROCESSING SUPERVISOR to be started in PACU Q4PCA IV Last administered on 04/02/17 05:45; Admin Dose 6 MG; Start 03/31/17 at 12:30 Miscellaneous Information 1. Hold DATA PROCESSING SUPERVISOR at 1,000... DATA PROCESSING SUPERVISOR IV ; Start 03/31/17 at 12 :30 Loratadine (Claritin) 10 mg DAILY PO Last administered on 04/02/17 08:55; Admin Dose 10 MG; Start 04/01/17 at 09:00 Losartan Potassium (Cozaar) 50 mg DAILY PO Last administered on 04/02/17 08: 55; Admin Dose 50 MG; Start 03/31/17 at 18:30 Pantoprazole 40 mg 40 mg DAILY@06 PO Last administered on 04/03/17 05:01; Admin Dose 40 MG; Start 04/02/17 at 06:00 Sodium Chloride (NS) 1,000 ml @ 75 mls/hr [id number] IV Last administered on 13:48; Admin Dose 75 MLS/HR; Start 04/02/17 at 13:00 PATRICIA MONTES MD Apr 03, 2017 08:15
--- NOTE | 2017-04-03 08:20 | DS ---
Date/Time of Note Date/Time of Note DATE: 04/03/17 TIME: 08:19 Discharge Summary Admission/Discharge Info Admit Date/Time Mar 31, 2017 at 10:57 Discharge Date/Time April 03 Discharge Diagnosis Lumbar fusion Patient Condition: Good Procedures L4-5 fusion Hx of Present Illness Back and leg pain Hospital Course Patient was admitted to the [facility]. By postoperative day 3 she was deemed stable for discharge with follow-up arranged with the undersigned Home Meds Reported Medications Cetirizine Hcl* (Cetirizine Hcl*) 10 Mg Tablet, 10 MG PO DAILY, #30 TAB 03/31/17 Cholecalciferol (Vitamin D3) (Vitamin D3) 2,000 Unit Tab.chew, 2000 UNIT PO, TAB.CHEW 03/31/17 Losartan-Hydrochlorothiazide (Losartan-HCTZ) 50-12.5 Mg Tab, 1 TAB PO DAILY, TAB 03/31/17 Gabapentin* (Gabapentin*) 100 Mg Capsule, 200 MG PO TID, #180 CAP 03/31/17 Primary Care Provider Not On Staff Doctor Pending Labs Laboratory Tests Test 04/03/17 04:44 White Blood Count 7.710^3/ul (4.8-10.8) Red Blood Count 3.0710^6/ul (4.20-5.40) Hemoglobin 10.5g/dl (12.0-16.0) Hematocrit 31.8% (37.0-47.0) Mean Corpuscular Volume 103.6fl (82.0-101.0) Mean Corpuscular Hemoglobin 34.2pg (29.0-33.0) Mean Corpuscular Hemoglobin Concent 33.0g/dl (32.0-37.0) Red Cell Distribution Width 11.3% (11.5-14.5) Platelet Count 43286^3/UL (140-415) Mean Platelet Volume 10.2fl (7.4-10.4) Neutrophils % 61.0% (39.0-77.0) Lymphocytes % 21.0% (15.0-51.0) Monocytes % 13.8% (0.0-11.0) Eosinophils % 3.2% (0.0-7.0) Basophils % 0.6% (0.0-2.0) Nucleated Red Blood Cells % 0.0/100WBC (0.0-0.0) Neutrophils # 4.710^3/ul (1.6-7.5) Lymphocytes # 1.610^3/ul (0.8-2.9) Monocytes # 1.110^3/ul (0.3-0.9) Eosinophils # 0.310^3/ul (0.0-0.5) Basophils # 0.110^3/ul (0.0-0.1) Nucleated Red Blood Cells # 0.010^3/ul (0.0-0.0) Sodium Level 138mmol/L (135-144) Potassium Level 4.0mmol/L (3.5-5.1) Chloride Level 104mmol/L (97-110) Carbon Dioxide Level 31mmol/L (21-31) Anion Gap 7 (8-16) Blood Urea Nitrogen 9mg/dl (7-20) Creatinine 0.74mg/dl (0.44-1.00) Glucose Level 96mg/dl (70-220) Calcium Level 9.1mg/dl (8.4-10.2) Magnesium Level 1.9mg/dl (1.7-2.5) TINA MYLES MD Apr 03, 2017 08:20
[2017-04-03] MEDS: LORATADINE 10 MG TAB PO SCH (08:22)
[2017-04-03] MEDS: DOCUSATE SODIUM 100 MG CAP PO SCH (08:22)
[2017-04-03] MEDS: DIPHENHYDRAMINE 25 MG CAP PO PRN (08:22)
[2017-04-03] MEDS: LOSARTAN 50 MG TAB PO SCH (08:24)
== END 2017-04-03 10:30 | disposition home or self-care (01) | DRG 455 ==
LOC: REC 10:57 → MS1 19:40
PROVIDERS: ADMIT Specialist; ATTEND Specialist
PROC: 0SG00K1 Fusion of Lumbar Vertebral Joint with Nonautologous Tissue Substitute, Posterior Approach, Posterior Column, Open Approach (ICD-10-PCS; 2017-03-31)
PROC: 0ST20ZZ Resection of Lumbar Vertebral Disc, Open Approach (ICD-10-PCS; 2017-03-31)
PROC: 07DS3ZZ Extraction of Vertebral Bone Marrow, Percutaneous Approach (ICD-10-PCS; 2017-03-31)
PROC: 4A11X4G Monitoring of Peripheral Nervous Electrical Activity, Intraoperative, External Approach (ICD-10-PCS; 2017-03-31)
PROC: 0SG00A0 Fusion of Lumbar Vertebral Joint with Interbody Fusion Device, Anterior Approach, Anterior Column, Open Approach (ICD-10-PCS; principal; 2017-03-31 13:30)
DX: M43.16 Spondylolisthesis, lumbar region (principal); I10 Essential (primary) hypertension; M48.062 Spinal stenosis, lumbar region with neurogenic claudication; M54.16 Radiculopathy, lumbar region
CPT/HCPCS: 72020; 72110; 80048; 81003; 83735; 85025; 86850; 86900; 86901; 86920; 86999; 87086; 97116; 97162; 97530; C9113; J0360; J0690; J1170; J1200; J1644; J2405; J3010; J3480; J7030